=== PATIENT | female | born 1985 | race Caucasian/White ===

== ENCOUNTER 2016-11-13 19:04 | Emergency (ER) | payer SELFPAY ==
[~2016-11-13] VITALS: Ht 154.9 cm; Wt 45.4 kg
[~2016-11-13 19:04] MED LIST: LEVO1TBD5 PO; LEVO25TA4 PO; PROP10TA PO; PROP50TA3 PO
[2016-11-13 20:06] VITALS: BP 97/52
[2016-11-13] MEDS ORDERED: HYDR25CA PO (20:08)
--- NOTE | 2016-11-13 20:08 | PHYS DOC ---
Past Medical History Past Medical History: Hyperthyroid Additional Past Medical Histor: SUBSTANCE ABUSE Past Surgical History: Tonsillectomy Alcohol Use: Occasionally Drug Use: Methamphetamine Social History Narrative: PT REPORTS DAILY METH USE, LAST TIME WAS MONDAY. Adult General Chief Complaint Chief Complaint: ALLERGIC REACTION HPI HPI 31-year-old female who is currently in a rehabilitation facility presents secondary to concern over an allergic reaction to Haldol. She was given a Haldol injection a couple days ago and today she felt a little bit like her jaw was locking up. Because of this she called EMS they gave her 50 of Benadryl in route and she now states she feels sleepy but back to normal. She's never had a reaction like this in the past. She's had no skin rash or any other issues. She' s had no difficulty breathing or swallowing. She has not noticed her lips or tongue swelling. [] Review of Systems Review of Systems Constitutional: Denies fever or chills [] Eyes: Denies change in visual acuity, redness, or eye pain [] HENT: Denies nasal congestion or sore throat [] Respiratory: Denies cough or shortness of breath [] Cardiovascular: No additional information not addressed in HPI [] GI: Denies abdominal pain, nausea, vomiting, bloody stools or diarrhea [] : Denies dysuria or hematuria [] Musculoskeletal: Denies back pain or joint pain [] Integument: Denies rash or skin lesions [] Neurologic: Denies headache, focal weakness or sensory changes [] Endocrine: Denies polyuria or polydipsia [] Allergies Allergies Allergies Coded Allergies Type Severity Reaction Last Updated Verified No Known Drug Allergies 06/23/14 No Physical Exam Physical Exam Constitutional: Well developed, well nourished, no acute distress, non-toxic appearance. [] HENT: Normocephalic, atraumatic, bilateral external ears normal, oropharynx moist, no oral exudates, nose normal. [] Eyes: PERRLA, EOMI, conjunctiva normal, no discharge. [] Neck: Normal range of motion, no tenderness, supple, no stridor. [] Cardiovascular:Heart rate regular rhythm, no murmur [] Lungs & Thorax: Bilateral breath sounds clear to auscultation [] Abdomen: Bowel sounds normal, soft, no tenderness, no masses, no pulsatile masses. [] Skin: Warm, dry, no erythema, no rash. [] Back: No tenderness, no CVA tenderness. [] Extremities: No tenderness, no cyanosis, no clubbing, ROM intact, no edema. [] Neurologic: Alert and oriented X 3, normal motor function, normal sensory function, no focal deficits noted. [] Psychologic: Affect normal, judgement normal, mood normal. [] Current Patient Data Vital Signs Vital Signs Date Time Temp Pulse Resp B/P Pulse Ox O2 Delivery O2 Flow Rate FiO2 11/13/16 19:17 97.9 84 18 117/65 99 Room Air 97.9 EKG EKG [] Radiology/Procedures Radiology/Procedures [] Course & Med Decision Making Course & Med Decision Making Pertinent Labs and Imaging studies reviewed. (See chart for details) [ED course: It sounds as if she may have had a dystonic reaction related to Haldol. Benadryl resolved her issue. She's been stable in our emergency department. I've encouraged her to take Benadryl 25 mg every 4-6 hours as needed for symptoms. He is stable for discharge] Dragon Disclaimer Dragon Disclaimer This electronic medical record was generated, in whole or in part, using a voice recognition dictation system. Departure Departure Impression: Primary Impression: Dystonic drug reaction Disposition: HOME, SELF-CARE Condition: IMPROVED Referrals: NO PCP (PCP) Patient Instructions: [place] Additional Instructions: Thank you for allowing us to participate in your care today. Followup with your primary care physician in 3 days if your symptoms do not improve. Return to the emergency department you have any new or concerning findings. This should be evaluated by the primary care physician and any necessary consulting services for continued management within a few days after discharge. Return to emergency room if you have any new or concerning symptoms including but not limited to fever, chills, nausea, vomiting, intractable pain, any new rashes, chest pain, shortness of air, uncontrolled bleeding, difficulty breathing, and/or vision loss. You may have been prescribed medication that can change in your level of thinking and ability to operate machinery. These medications include hydrocodone and Ativan. Also, Benadryl has been known to do this as well. Be sure to check with your pharmacist and ask if the medications you've prescribed can affect your level of consciousness. I recommend not operating heavy machinery or driving while on medication such as these. Scripts Hydroxyzine Pamoate (Vistaril)25 Mg [id number] Mg PO Q6HRS PRN allergic reaction #30 CAP Prov:ALFRED NARANJO DO 11/13/16 ALFRED NARANJO DO Nov 13, 2016 20:08
== END 2016-11-13 21:02 | disposition home or self-care (01) ==
LOC: ER 19:04
DX: G24.09 Other drug induced dystonia (principal); E05.90 Thyrotoxicosis, unspecified without thyrotoxic crisis or storm; F15.10 Other stimulant abuse, uncomplicated
CPT/HCPCS: 99284

== ENCOUNTER 2017-07-02 19:37 | Emergency (ER) | payer SELFPAY ==
[~2017-07-02] VITALS: Ht 152.4 cm; Wt 61.2 kg
[2017-07-02 19:37] VITALS: BP 129/81
[~2017-07-02 19:37] MED LIST changes: +HYDR25CA PO; +PROP50TA17 PO; -PROP50TA3 PO
[2017-07-02] MEDS ORDERED: CEPH500T PO (19:59)
--- NOTE | 2017-07-02 19:59 | PHYS DOC ---
Past Medical History Past Medical History: Hyperthyroid Additional Past Medical Histor: SUBSTANCE ABUSE Past Surgical History: Tonsillectomy Alcohol Use: Occasionally Drug Use: Methamphetamine Adult General Chief Complaint Chief Complaint: TONGUE SWELLING/INJURY [facility] HPI Patient is a 32 year old female presents the ED complaining of swelling to lip x 1 day. States she just had a lip piercing a day ago and woke up with swelling and redness around the lip. Describes the pain as sharp. Rates as 6/10. Denies fever, n/v, difficulty swallowing, headache, chest pain or shortness of breath. Review of Systems Review of Systems Constitutional: Denies fever or chills [] Eyes: Denies change in visual acuity, redness, or eye pain [] HENT: Denies nasal congestion or sore throat [] Respiratory: Denies cough or shortness of breath [] Cardiovascular: No additional information not addressed in HPI [] GI: Denies abdominal pain, nausea, vomiting, bloody stools or diarrhea [] : Denies dysuria or hematuria [] Musculoskeletal: Denies back pain or joint pain [] Integument: Denies rash or skin lesions [] Neurologic: Denies headache, focal weakness or sensory changes [] Endocrine: Denies polyuria or polydipsia [] All other systems were reviewed and found to be within normal limits, except as documented in this note. Allergies Allergies Allergies Coded Allergies Type Severity Reaction Last Updated Verified No Known Drug Allergies 06/23/14 No Physical Exam Physical Exam Constitutional: Well developed, well nourished, no acute distress, non-toxic appearance. [] HENT: Normocephalic, atraumatic, bilateral external ears normal, oropharynx moist, no oral exudates, nose normal. ERYTHEMA AND DRAINAGE SURROUNDING PIERCING TO LEFT LOWER LIP. [] Neck: Normal range of motion, no tenderness, supple, no stridor. [] Cardiovascular:Heart rate regular rhythm, no murmur [] Lungs & Thorax: Bilateral breath sounds clear to auscultation [] Skin: Warm, dry, no erythema, no rash. [] Neurologic: Alert and oriented X 3, normal motor function, normal sensory function, no focal deficits noted. [] Psychologic: Affect normal, judgement normal, mood normal. [] EKG EKG [] Radiology/Procedures Radiology/Procedures [] Course & Med Decision Making Course & Med Decision Making Pertinent Labs and Imaging studies reviewed. (See chart for details) []Tetanus up-to-date. Patient's lip ring removed. Discussed abstaining from piercing lip until it heals. Will prescribe Keflex. Discussed symptomatic treatment. Discussed follow-up for wound reevaluation in 3 days. Provided contact information/education. Discussed reasons to return to the ED. Patient understands agrees with plan. Dragon Disclaimer Dragon Disclaimer This electronic medical record was generated, in whole or in part, using a voice recognition dictation system. Departure Departure Impression: Primary Impression: Pierced lip infection Disposition: HOME, SELF-CARE Condition: STABLE Referrals: NO PCP (PCP) SARAY DYE MD Patient Instructions: Oral Piercing, Piercing Infection Scripts Cephalexin (CEPHALEXIN) 500 Mg Tablet 1 TAB PO TID, #30 TAB Prov: ADI AL 07/02/17 ADI AL Jul 02, 2017 19:59
== END 2017-07-02 20:12 | disposition home or self-care (01) ==
LOC: ER 19:37
DX: B99.8 Other infectious disease (principal); K13.0 Diseases of lips; E05.90 Thyrotoxicosis, unspecified without thyrotoxic crisis or storm
CPT/HCPCS: 99284

== ENCOUNTER 2017-10-04 16:53 | Emergency (ER) | payer SELFPAY ==
[2017-10-04 17:51] LABS: ADD MAN DIFF? NO
[2017-10-04 17:53] LABS: BASO # 0.1 x10^3/uL (0.0-0.2); BASO % 1 % (0-3); EOS # 0.2 x10^3/uL (0.0-0.7); EOS % 4 % (0-3); HEMATOCRIT 35.7 % (36.0-47.0); HEMOGLOBIN 12.5 g/dL (12.0-15.5); LYMPH # 1.8 x10^3/uL (1.0-4.8); LYMPH % 31 % (24-48); MEAN CORPUSCULAR HEMOGLOBIN 32 pg (25-35); MEAN CORPUSCULAR HGB CONC 35 g/dL (31-37); MEAN CORPUSCULAR VOLUME 91 fL (79-100); MONO # 0.5 x10^3/uL (0.0-1.1); MONO % 9 % (0-9); NEUT # 3.3 x10^3uL (1.8-7.7); NEUT % 55 % (31-73); PLATELET COUNT 277 x10^3/uL (140-400); RED CELL DISTRIBUTION WIDTH 12.1 % (11.5-14.5); WHITE BLOOD COUNT 5.9 x10^3/uL (4.0-11.0)
[2017-10-04 18:03] LABS: ANION GAP 8 (6-14); BLOOD UREA NITROGEN 20 mg/dL (7-20); BUN/CREATININE RATIO 25 (6-20); CARBON DIOXIDE 26 mmol/L (21-32); CHLORIDE 104 mmol/L (98-107); CREATININE 0.8 mg/dL (0.6-1.0); GFR 84.2; GLUCOSE 119 mg/dL (70-99); POTASSIUM 3.2 mmol/L (3.5-5.1); SODIUM 138 mmol/L (136-145)
[2017-10-04 18:10] LABS: ALBUMIN/GLOBULIN RATIO 1.1 (1.0-1.7); ALK PHOS 66 U/L (46-116); ALT (SGPT) 19 U/L (14-59); AST (SGOT) 13 U/L (15-37); TOTAL BILIRUBIN 0.2 mg/dL (0.2-1.0); TOTAL PROTEIN 7.5 g/dL (6.4-8.2)
== END 2017-10-04 18:29 | disposition home or self-care (01) ==
LOC: ER 16:53
DX: L85.3 Xerosis cutis (principal); E05.90 Thyrotoxicosis, unspecified without thyrotoxic crisis or storm; F15.10 Other stimulant abuse, uncomplicated
CPT/HCPCS: 36415; 80053; 85025; 99284

== ENCOUNTER 2018-07-05 12:47 | Emergency (ER) | payer SELFPAY ==
[~2018-07-05] VITALS: Ht 152.4 cm; Wt 65.8 kg
[~2018-07-05 12:47] MED LIST changes: -PROPOFOL 40 ML IV ONE
[2018-07-05] MEDS ORDERED: ONDANSETRON PF 4 MG/2 ML VIAL. IV ONE (13:00)
[2018-07-05] MEDS ORDERED: GLUCAGON,HUMAN RECOMBINANT 1 MG/ML VIAL. IV ONE (13:00)
--- NOTE | 2018-07-05 13:05 | PHYS DOC ---
Past Medical History Past Medical History: Hyperthyroid Additional Past Medical Histor: SUBSTANCE ABUSE Past Surgical History: Tonsillectomy Alcohol Use: Occasionally Drug Use: Methamphetamine Adult General HPI HPI Patient is a 33 year old f presenting with food impaction. She was eating chicken while at work it get stuck in her esophagus she has had no relief. Review of Systems Review of Systems Constitutional: Denies fever or chills [] Eyes: Denies change in visual acuity, redness, or eye pain [] Respiratory: Denies cough or shortness of breath [] Cardiovascular: No additional information not addressed in HPI [] : Denies dysuria or hematuria [] Musculoskeletal: Denies back pain or joint pain [] All other systems were reviewed and found to be within normal limits, except as documented in this note. Current Medications Current Medications Current Medications Medications (Trade) Dose Ordered Sig/Blaze Start Time Stop Time Status Last Admin Dose Admin Glucagon (Glucagen) 1 mg 1X ONCE 07/05/18 13:00 07/05/18 13:01 DC 07/05/18 13:11 1 MG Lorazepam (Ativan) 1 mg 1X ONCE 07/05/18 13:00 07/05/18 13:01 DC 07/05/18 13:09 1 MG Ondansetron HCl (Zofran) 4 mg 1X ONCE 07/05/18 13:00 07/05/18 13:01 DC 07/05/18 13:10 4 MG Sodium Chloride 1,000 ml @ 1,000 mls/hr 1X ONCE 07/05/18 14:15 07/05/18 15:14 DC 07/05/18 14:23 1,000 MLS/HR Allergies Allergies Allergies Coded Allergies Type Severity Reaction Last Updated Verified No Known Drug Allergies 07/05/18 No Physical Exam Physical Exam Constitutional: Well developed, well nourished, no acute distress, non-toxic appearance. [] HENT: Normocephalic, atraumatic, bilateral external ears normal, oropharynx moist, no oral exudates, nose normal. [] Eyes: PERRLA, EOMI, conjunctiva normal, no discharge abd: soft nontender nondistended. back: No tenderness, no CVA tenderness. [] Extremities: No tenderness, no cyanosis, no clubbing, ROM intact, no edema. [] Neurologic: Alert and oriented X 3, normal motor function, normal sensory function, no focal deficits noted. [] Psychologic: Affect normal, judgement normal, mood normal. [] Current Patient Data Vital Signs Vital Signs Date Time Temp Pulse Resp B/P (MAP) Pulse Ox O2 Delivery O2 Flow Rate FiO2 07/05/18 14:46 86 18 118/71 (87) 98 Room Air 07/05/18 12:47 98.1 98.1 Lab Values Laboratory Tests Test 07/05/18 14:24 POC Urine HCG, Qualitative Hcg negative (Negative) EKG EKG [] Radiology/Procedures Radiology/Procedures [] Course & Med Decision Making Course & Med Decision Making Pertinent Labs and Imaging studies reviewed. (See chart for details) no relief with usual er tx. d/w tabulating machine mechanic from gi will take to endo suite directly from er [] Dragon Disclaimer Dragon Disclaimer This electronic medical record was generated, in whole or in part, using a voice recognition dictation system. Departure Departure Impression: Primary Impression: Esophageal foreign body Disposition: HOME, SELF-CARE Condition: STABLE Referrals: NO PCP (PCP) RADHA SAAVEDRA MD Jul 05, 2018 13:05
[2018-07-05] MEDS ORDERED: IV NORMAL SALINE 1000ML BAG 1,000 ML IV ONE (14:15)
[2018-07-05 14:46] VITALS: BP 118/71
--- NOTE | 2018-07-05 15:14 | PDOC2 ---
GI CONSULT Reason For Consult: Food bolus HPI: HPI: 33 y/o female seen in ER after d/w ER physician, Dr. Clayton. An employee at [employer], she took a bite of a chicken strip around 12:00 p.m. today. Because it was very hot, she was unable to chew well and it has been caught in her throat. No relief w/ glucagon and Ativan. She is unable to maintain her own secretions. Interestingly, she has a h/o daily dysphagia for years, mostly felt with solids. She has to have water on hand to wash the food down, especially as she eats more throughout the day. She has never had food get stuck like this before though. Has heartburn that is untreated. No odynophagia. No n/v, abd pain, constipation, diarrhea, bleeding, change in appetite, or weight loss. No previous EGD or colonoscopy. No GB, liver, or pancreas history. Takes no medications. 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) ROS: GEN: Denies fevers, chills, sweats HEENT: Denies blurred vision, sore throat CV: Denies chest pain RESP: Denies shortness of air, cough GI: Per HPI : Denies hematuria, dysuria ENDO: Denies weight changes NEURO: Denies confusion, dizziness MSK: Denies weakness, joint pain/swelling SKIN: Denies jaundice, pruritus Vitals: Vitals: Vital Signs Date Time Temp Pulse Resp B/P (MAP) Pulse Ox O2 Delivery O2 Flow Rate FiO2 07/05/18 12:47 98.1 89 18 117/76 (90) 98 Room Air 98.1 Labs: Labs: Laboratory Tests Test 07/05/18 14:24 Bedside Urine HCG, Qualitative Hcg negative (Negative) Allergies: Coded Allergies: No Known Drug Allergies (Unverified , 06/23/14) Medications: Current Medications Medications (Trade) Dose Ordered Sig/Blaze Route PRN Reason Start Time Stop Time Status Last Admin Dose Admin Glucagon (Glucagen) 1 mg 1X ONCE IV 07/05/18 13:00 07/05/18 13:01 DC 07/05/18 13:11 Lorazepam (Ativan) 1 mg 1X ONCE IV 07/05/18 13:00 07/05/18 13:01 DC 07/05/18 13:09 Ondansetron HCl (Zofran) 4 mg 1X ONCE IV 07/05/18 13:00 07/05/18 13:01 DC 07/05/18 13:10 Sodium Chloride 1,000 ml @ 1,000 mls/hr 1X ONCE IV 07/05/18 14:15 07/05/18 15:14 07/05/18 14:23 Imaging: Imaging: - PE: GEN: spitting saliva into a cup HEENT: Atraumatic, PERRL LUNGS: CTAB HEART: RRR, ABD: NABS, S/ND/NT EXTREMITY: No edema SKIN: No rashes, no jaundice NEURO/PSYCH: A & O 3 A/P: A/P: Food bolus - chicken, since 12:00 p.m. today Chronic dysphagia - daily w/ solids Heartburn CRC screen - average risk H/o Graves s/p radioactive iodine H/o substance abuse (meth) - sober x 2 years -- Plan for EGD/disimpaction w/ Dr. Lockhart this afternoon. MARCY LOVETT Jul 05, 2018 15:14
== END 2018-07-05 15:15 | disposition home or self-care (01) ==
LOC: ER 12:47
DX: T18.128A Food in esophagus causing other injury, initial encounter (principal); E03.9 Hypothyroidism, unspecified; Z90.89 Acquired absence of other organs; X58.XXXA Exposure to other specified factors, initial encounter; Y93.89 Activity, other specified; Y92.89 Other specified places as the place of occurrence of the external cause; Y99.0 Civilian activity done for income or pay
CPT/HCPCS: 81025; 96374; 96375; 99283; J1610; J2060; J2405; J7030

== ENCOUNTER → 2018-07-05 | Day surgery (SDC) | payer SELFPAY ==
[~2018-07-05] MED LIST changes: +CEPH500T PO; +PROPOFOL 40 ML IV ONE
[2018-07-05 17:18] VITALS: BP 117/54
--- NOTE | 2018-07-09 18:07 | PATHOLOGY ---
[facility] Accession Number: [id number] . 01 Material submitted: . PART A: GASTRIC ANTRUM BX PART B: GASTRIC CARDIA BX PART C: DISTAL ESOPHAGUS BX PART D: PROXIMAL ESOPHAGUS BX . 01 Clinical history: . Food bolus Rule out H. pylori . 02 Diagnosis: A. Gastric biopsies, antrum: - Gastric body mucosa showing congestion and mild chronic inflammation. . B. Gastric biopsies, gastric cardia: - Esophagogastric mucosa showing chronic inflammation with eosinophils. . C. Esophageal biopsies, distal esophagus: - Esophagitis with eosinophils. See comment. . D. Esophageal biopsies, proximal esophagus: - Segments of mildly hyperplastic squamous esophageal mucosa identified. [facility]/07/09/2018 . 02 Comment: Sections of the gastric antral biopsy reveal segments of gastric body mucosa showing congestion and mild superficial chronic inflammation with a lymphoid aggregate present within the base of the mucosa. An immunoperoxidase stain for Helicobacter is negative for Helicobacter organisms. Sections of the gastric cardia biopsy reveal esophagogastric mucosa showing mild to moderate chronic inflammation with focally admixed eosinophils. An immunoperoxidase for Helicobacter is negative for Helicobacter organisms. Sections of the distal esophageal biopsy reveal segments of hyperplastic squamous esophageal mucosa showing increased intraepithelial eosinophils. The differential diagnosis of esophagitis with eosinophils includes reflux esophagitis, "pill esophagitis", and eosinophilic esophagitis. Focally, there are approximately 20 intraepithelial eosinophils per high-power field suggestive of eosinophilic esophagitis. There is no evidence of Xie's change, dysplasia, or malignancy. Sections of the proximal esophageal biopsy reveal segments of mildly hyperplastic squamous esophageal mucosa. Focally, there are a few intraepithelial eosinophils. There is no evidence of Xie's change, dysplasia, or malignancy. ([facility] 07/09/2018) . Special stain performed: Immunoperoxidase for Helicobacter on A1 and B1. . 02 Electronically signed: . Jeramie Rosen MD, Pathologist NPI- [id number] . 01 Gross description: . A. The specimen is received in formalin, labeled "Leonel, Pippa, gastric antrum BX" and consists of 4 fragments of montano tissue measuring between 0.2 x 0.2 x 0.1 cm and 0.5 x 0.2 x 0.1 cm. They are entirely submitted in A1. . B. The specimen is received in formalin, labeled "Leonel, Pippa, gastric cardia BX" and consists of 2 fragments of montano tissue measuring 0.3 x 0.1 x 0.1 cm and 0.4 x 0.3 x 0.2 cm. They are entirely submitted in B1. . C. The specimen is received in formalin, labeled "Leonel, Pippa, distal esophagus BX" and consists of 3 fragments of translucent montano tissue measuring between 0.1 x 0.1 cm and 0.3 x 0.2 x 0.1 cm. They are entirely submitted in C1. . D. The specimen is received in formalin, labeled "Leonel, Pippa, proximal esophagus BX" and consists of 3 translucent fragments of funes-montano tissue measuring between 0.2 x 0.2 cm and 0.3 x 0.2 x 0.1 cm. They are entirely submitted in D1. ([facility]Y; 07/06/2018) SYU/SYU . 02 Pathologist provided ICD-10: K29.50, K31.89, K20.8 . 02 CPT . 056270, 036128, 633234, 822882, [id number] Specimen Comment: A courtesy copy of this report has been sent to Specimen Comment: [phone]. Specimen Comment: Report sent to Specimen Comment: A duplicate report has been generated due to demographic updates. Performed at: 01 [facility] [address], [place], [place] [id number] MD Bubba Garza MD Phone: [phone] Performed at: 02 [facility] [address] [place], [place] [id number] MD Jeramie Rosen MD Phone: [phone]
== END | disposition home or self-care (01) ==
LOC: SURG 15:46
PROVIDERS: ATTEND Internal Medicine
DX: K25.9 Gastric ulcer, unspecified as acute or chronic, without hemorrhage or perforation (principal); K44.9 Diaphragmatic hernia without obstruction or gangrene; K31.89 Other diseases of stomach and duodenum; K22.8 Other specified diseases of esophagus; K29.50 Unspecified chronic gastritis without bleeding; K21.0 Gastro-esophageal reflux disease with esophagitis
CPT/HCPCS: 43239; 88305; 88342; J2704

== ENCOUNTER 2018-08-20 16:15 | Emergency (ER) | payer SELFPAY ==
[~2018-08-20] VITALS: Ht 152.4 cm; Wt 68.0 kg
[2018-08-20 16:17] VITALS: BP 144/79
[2018-08-20 16:52] LABS: BILIRUBIN,URINE NEGATIVE (NEG); CLARITY,URINE CLEAR; COLOR,URINE YELLOW; NITRITE,URINE NEGATIVE (NEG); PH,URINE 5.5; PROTEIN,URINE NEGATIVE (NEG-TRACE); UROBILINOGEN,URINE 0.2 mg/dL (0.2 mg/dL)
[2018-08-20] MEDS ORDERED: METR-84 PO (16:59)
[2018-08-20] MEDS: AZITHROMYCIN 250 MG TABLET. PO ONE (17:01)
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
[2018-08-20] MEDS: cefTRIAXone IM 250 MG VIAL IM ONE (17:02)
[2018-08-20 17:14] LABS: BACTERIA,URINE 0 /HPF (0-FEW); RBC,URINE 0 /HPF (0-2); SQUAMOUS EPITHELIAL CELL,UR OCC /LPF; WBC,URINE OCC /HPF (0-4)
[2018-08-21 13:28] LABS: GC PROBE Negative (Negative)
== END 2018-08-20 17:15 | disposition home or self-care (01) ==
LOC: ER 16:15
DX: A64 Unspecified sexually transmitted disease (principal); N76.0 Acute vaginitis; B96.89 Other specified bacterial agents as the cause of diseases classified elsewhere; E05.90 Thyrotoxicosis, unspecified without thyrotoxic crisis or storm; Z90.89 Acquired absence of other organs
CPT/HCPCS: 81001; 81025; 87491; 87591; 96372; 99283; J0696; Q0111; Q0144

== ENCOUNTER 2019-04-12 19:31 | Emergency (ER) | payer SELFPAY ==
[~2019-04-12] VITALS: Ht 152.4 cm; Wt 63.5 kg
[~2019-04-12 19:31] MED LIST changes: +METR-34 PO
[2019-04-12 20:00] VITALS: BP 129/75
--- NOTE | 2019-04-12 20:55 | PHYS DOC ---
Past Medical History Past Medical History: Hyperthyroid, Other Additional Past Medical Histor: SUBSTANCE ABUSE,GRAVES DISEASE (TITI TOMLIN APRN) Past Surgical History: Tonsillectomy, Other Additional Past Surgical Histo: ADENOIDECTOMY (TITI TOMLIN APRN) Alcohol Use: Rarely Drug Use: None, Methamphetamine (TITI TOMLIN APRN) Adult General Chief Complaint Chief Complaint: ITCHING HPI HPI Patient is a 33 year old female who presents to the emergency department with complaints of itching all over for the last 2 years. Patient states she is taking 15-20 Benadryl a day. She states that all of the sudden an area of her body will itch and she will scratch it. She denies any shortness breath, wheezing, or hives. Patient states that she uses fragrance free body wash items and laundry detergents. She denies any pain at this time. She reports frequent dry skin that she applies lotion to frequently. (TITI TOMLIN APRN) Review of Systems Review of Systems Constitutional: Denies fever or chills [] Eyes: Denies change in visual acuity, redness, or eye pain [] HENT: Denies nasal congestion or sore throat [] Respiratory: Denies cough or shortness of breath [] Cardiovascular: No additional information not addressed in HPI [] GI: Denies abdominal pain, nausea, or vomiting Musculoskeletal: Denies back pain or joint pain [] Integument: see HPI Neurologic: Denies headache, focal weakness or sensory changes [] Endocrine: reports hx of Grave's disease has been off medications for several years Complete systems were reviewed and found to be within normal limits, except as documented in this note. (TITI TOMLIN APRN) Allergies Allergies Allergies Coded Allergies Type Severity Reaction Last Updated Verified No Known Drug Allergies 07/05/18 No (SARAY BECK DO) Physical Exam Physical Exam Constitutional: Well developed, well nourished, no acute distress, non-toxic appearance. [] HENT: Normocephalic, atraumatic, bilateral external ears normal, oropharynx mo ist, no oral exudates, nose normal. [] Eyes: PERRLA, EOMI, conjunctiva normal, no discharge. [] Neck: Normal range of motion, no stridor. [] Cardiovascular:Heart rate regular rhythm Lungs & Thorax: Respirations even and unlabored, no retractions, no respiratory distress Skin: Warm, dry, no erythema, no rash, no hives, patches of dry skin noted without erythema[] Back: No tenderness Extremities: No tenderness, no cyanosis, no clubbing, ROM intact, no edema. [] Neurologic: Alert and oriented X 3, no focal deficits noted. [] Psychologic: Affect normal, judgement normal, mood normal. [] (TITI TOMLIN APRN) Current Patient Data Vital Signs Vital Signs Date Time Temp Pulse Resp B/P (MAP) Pulse Ox O2 Delivery O2 Flow Rate FiO2 04/12/19 20:00 97.9 82 16 129/75 (93) 99 Room Air 97.9 (SARAY BECK DO) EKG EKG [] (TITI TOMLIN APRN) Radiology/Procedures Radiology/Procedures [] (TITI TOMLIN APRN) Course & Med Decision Making Course & Med Decision Making Pertinent Labs and Imaging studies reviewed. (See chart for details) [] (TITI TOMLIN APRN) Dragon Disclaimer Dragon Disclaimer This electronic medical record was generated, in whole or in part, using a voice recognition dictation system. (TITI TOMLIN APRN) Departure Departure Impression: Primary Impression: Itching Disposition: 01 HOME, SELF-CARE Condition: STABLE Referrals: NO PCP (PCP) Patient Instructions: Itching-Brief Additional Instructions: Recommend you try a daily antihistamine such as zyrtec or claritin. Stop taking over the recommended daily amount of benadryl. 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 Return to the ER if symptoms worsen. Attending Signature Attending Signature I have reviewed the PA/LEAD MECHANICAL ENGINEER's note and plan of care. I was available for consultation as needed during the patient's visit in the emergency department. I agree with the clinical impression, plan, and disposition. (SARAY BECK DO) TITI TOMLIN APRN Apr 12, 2019 20:55 SARAY BECK DO Apr 12, 2019 22:07
== END 2019-04-12 21:03 | disposition home or self-care (01) ==
LOC: ER 19:31
DX: L29.9 Pruritus, unspecified (principal); E05.90 Thyrotoxicosis, unspecified without thyrotoxic crisis or storm
CPT/HCPCS: 99281

== ENCOUNTER 2021-04-23 18:08 | Emergency (ER) | payer OTHER ==
[~2021-04-23] VITALS: Ht 152.4 cm; Wt 72.7 kg
[2021-04-23 20:44] LABS: BILIRUBIN,URINE NEGATIVE (NEG); CLARITY,URINE CLEAR; COLOR,URINE YELLOW; NITRITE,URINE NEGATIVE (NEG); PH,URINE 5.5 (<5.0-8.0); PROTEIN,URINE NEGATIVE (NEG-TRACE); UROBILINOGEN,URINE 0.2 mg/dL (0.2 mg/dL)
[2021-04-23 20:52] LABS: BACTERIA,URINE FEW /HPF (0-FEW)
[2021-04-23 20:54] LABS: RBC,URINE 0 /HPF (0-2)
[2021-04-23 21:25] LABS: BASO # 0.1 x10^3/uL (0.0-0.2); BASO % 1 % (0-3); EOS # 0.3 x10^3/uL (0.0-0.7); EOS % 4 % (0-3); HEMATOCRIT 39.2 % (36.0-47.0); HEMOGLOBIN 13.6 g/dL (12.0-15.5); LYMPH # 1.9 x10^3/uL (1.0-4.8); LYMPH % 25 % (24-48); MEAN CORPUSCULAR HEMOGLOBIN 31 pg (25-35); MEAN CORPUSCULAR HGB CONC 35 g/dL (31-37); MEAN CORPUSCULAR VOLUME 90 fL (79-100); MONO # 0.7 x10^3/uL (0.0-1.1); MONO % 9 % (0-9); NEUT # 4.4 x10^3/uL (1.8-7.7); NEUT % 60 % (31-73); PLATELET COUNT 287 x10^3/uL (140-400); RED BLOOD COUNT 4.35 x10^6/uL (3.50-5.40); WHITE BLOOD COUNT 7.4 x10^3/uL (4.0-11.0)
[2021-04-23 21:31] LABS: CREATININE 0.8 mg/dL (0.6-1.0); GFR 82.6; POTASSIUM 3.7 mmol/L (3.5-5.1)
--- NOTE | 2021-04-23 21:36 | RAD ---
Examination: Obstetric ultrasound less than 14 weeks HISTORY: History of abdominal pain COMPARISON: None available. FINDINGS: The uterus measures 7.8 x 4.0 x 4.1 cm. The endometrium measures 1.7 mm in thickness. The right ovary measures 3.9 x 2.9 x 1.9 cm. There is a 1.4 cm heterogeneous echogenicity identified in the right ov sb. The left ovary measures 2.9 x 2.8 x 1.8 cm. Blood flow identified in the right and left ovaries. Intrauterine gestational sac is not identified. IMPRESSION: 1. Intrauterine gestational sac is not identified. Differential includes very early ,or sammy led first trimester , or ectopic . An ectopic gestational sac is not identified. Co rrelate with the serial quantitative beta-hCG levels and follow-up ultrasound. 2. Heterogeneous 1.5 cm echogenicity identified in the right ovary could be a complex cyst or corpus luteal cyst. Electronically signed by: Mario Chu MD (04/23/2021 9:33 PM) [id number]
[2021-04-23 21:37] LABS: ALBUMIN/GLOBULIN RATIO 1.2 (1.0-1.7); MAGNESIUM 2.1 mg/dL (1.8-2.4); TOTAL BILIRUBIN 0.2 mg/dL (0.2-1.0); TOTAL PROTEIN 7.4 g/dL (6.4-8.2)
--- NOTE | 2021-04-23 21:53 | PHYS DOC ---
Past Medical History Past Medical History: Hyperthyroid, Other Additional Past Medical Histor: SUBSTANCE ABUSE,GRAVES DISEASE, CHRONIC HIVES (MELISSA,GAY M AIR ANALYSIS TECHNICIAN) Past Surgical History: Tonsillectomy, Other Additional Past Surgical Histo: ADENOIDECTOMY (GAY TORRES M AIR ANALYSIS TECHNICIAN) Smoking Status: Former Smoker Alcohol Use: Occasionally Drug Use: None, Methamphetamine (MELISSA,GAY M AIR ANALYSIS TECHNICIAN) General Adult EDM: Chief Complaint: ABDOMINAL PAIN IN HPI: HPI: Patient is a 35 year old female who presents with left lower slight cramping and a 3 out of 10 with slight dizziness that happened once. She denies any concern for STDs, vaginal discharge, vaginal bleeding, nausea, vomiting, diarrhea, fever, urinary symptoms. Patient's last menstrual period was March 27. She does have a positive test. Patient has a history of substance abuse, Graves' disease, tonsillectomy and appendectomy. (GAY TORRES M AIR ANALYSIS TECHNICIAN) Review of Systems: Review of Systems: Constitutional: Denies fever or chills. [] Eyes: Denies change in visual acuity. [] HENT: Denies nasal congestion or sore throat. [] Respiratory: Denies cough or shortness of breath. [] Cardiovascular: Denies chest pain or edema. [] GI: + abdominal pain, denies nausea, vomiting, bloody stools or diarrhea. [] : Denies dysuria. [] Musculoskeletal: Denies back pain or joint pain. [] Integument: Denies rash. [] Neurologic: Denies headache, focal weakness or sensory changes. [] Endocrine: Denies polyuria or polydipsia. [] Lymphatic: Denies swollen glands. [] Psychiatric: Denies depression or anxiety. [] (MELISSA,GAY M AIR ANALYSIS TECHNICIAN) Heart Score: C/O Chest Pain: No (MELISSA,GAY M AIR ANALYSIS TECHNICIAN) Allergies: Allergies: Allergies Coded Allergies Type Severity Reaction Last Updated Verified No Known Drug Allergies 07/05/18 No (GAY TORRES M AIR ANALYSIS TECHNICIAN) Physical Exam: PE: Constitutional: Well developed, well nourished, no acute distress, non-toxic appearance. [] HENT: Normocephalic, atraumatic, bilateral external ears normal, oropharynx moist, no oral exudates, nose normal. [] Eyes: PERRLA, EOMI, conjunctiva normal, no discharge. [] Neck: Normal range of motion, no tenderness, supple, no stridor. [] Cardiovascular:Heart rate regular rhythm, no murmur [] Lungs & Thorax: Bilateral breath sounds clear to auscultation [] Abdomen: Bowel sounds normal, soft, no tenderness, no masses, no pulsatile masses. [] Skin: Warm, dry, no erythema, no rash. [] Back: No tenderness, no CVA tenderness. [] Extremities: No tenderness, no cyanosis, no clubbing, ROM intact, no edema. [] Neurologic: Alert and oriented X 3, normal motor function, normal sensory function, no focal deficits noted. [] Psychologic: Affect normal, judgement normal, mood normal. [] Normal physical exam (GAY TORRES APRN) Current Patient Data: Labs: Laboratory Tests Test 04/23/21 19:24 04/23/21 19:29 04/23/21 21:12 Urine Collection Type Void Urine Color Yellow Urine Clarity Clear Urine pH 5.5 (<5.0-8.0) Urine Specific [place] >=1.030 (1.000-1.030) Urine Protein Negative mg/dL (NEG-TRACE) Urine Glucose (UA) Negative mg/dL (NEG) Urine Ketones (Stick) Negative mg/dL (NEG) Urine Blood Negative (NEG) Urine Nitrite Negative (NEG) Urine Bilirubin Negative (NEG) Urine Urobilinogen Dipstick 0.2 mg/dL (0.2 mg/dL) Urine Leukocyte Esterase Negative (NEG) Urine RBC 0 /HPF (0-2) Urine WBC 1-4 /HPF (0-4) Urine Squamous Epithelial Cells Few /LPF Urine Bacteria Few /HPF (0-FEW) Urine Mucus Mod /LPF POC Urine HCG, Qualitative Hcg positive (Negative) White Blood Count 7.4 x10^3/uL (4.0-11.0) Red Blood Count 4.35 x10^6/uL (3.50-5.40) Hemoglobin 13.6 g/dL (12.0-15.5) Hematocrit 39.2 % (36.0-47.0) Mean Corpuscular Volume 90 fL (79-100) Mean Corpuscular Hemoglobin 31 pg (25-35) Mean Corpuscular Hemoglobin Concent 35 g/dL (31-37) Red Cell Distribution Width 13.0 % (11.5-14.5) Platelet Count 287 x10^3/uL (140-400) Neutrophils (%) (Auto) 60 % (31-73) Lymphocytes (%) (Auto) 25 % (24-48) Monocytes (%) (Auto) 9 % (0-9) Eosinophils (%) (Auto) 4 % (0-3) H Basophils (%) (Auto) 1 % (0-3) Neutrophils # (Auto) 4.4 x10^3/uL (1.8-7.7) Lymphocytes # (Auto) 1.9 x10^3/uL (1.0-4.8) Monocytes # (Auto) 0.7 x10^3/uL (0.0-1.1) Eosinophils # (Auto) 0.3 x10^3/uL (0.0-0.7) Basophils # (Auto) 0.1 x10^3/uL (0.0-0.2) Sodium Level 138 mmol/L (136-145) Potassium Level 3.7 mmol/L (3.5-5.1) Chloride Level 103 mmol/L (98-107) Carbon Dioxide Level 27 mmol/L (21-32) Anion Gap 8 (6-14) Blood Urea Nitrogen 16 mg/dL (7-20) Creatinine 0.8 mg/dL (0.6-1.0) Estimated GFR (Cockcroft-Gault) 82.6 BUN/Creatinine Ratio 20 (6-20) Glucose Level 93 mg/dL (70-99) Calcium Level 9.0 mg/dL (8.5-10.1) Magnesium Level 2.1 mg/dL (1.8-2.4) Total Bilirubin 0.2 mg/dL (0.2-1.0) Aspartate Amino Transferase (AST) 8 U/L (15-37) L Alanine Aminotransferase (ALT) 20 U/L (14-59) Alkaline Phosphatase 63 U/L (46-116) Total Protein 7.4 g/dL (6.4-8.2) Albumin 4.0 g/dL (3.4-5.0) Albumin/Globulin Ratio 1.2 (1.0-1.7) Laboratory Tests 04/23/21 21:12 Laboratory Tests 04/23/21 21:12 Microbiology 04/23/21 Wet Prep - Final, Complete Vital Signs: Vital Signs Date Time Temp Pulse Resp B/P (MAP) Pulse Ox O2 Delivery O2 Flow Rate FiO2 04/23/21 19:15 98.4 70 119/73 (88) 93 Room Air 98.4 (GAY TORRES APRN) EKG: EKG: [] (GAY TORRES APRN) Radiology/Procedures: Radiology/Procedures: [] Impression: [facility] [address] [place] [address] IMAGING REPORT Signed PATIENT: CARRINGTON HUBER ACCOUNT: [id number] : 1985 LOCATION: ER AGE: 35 SEX: F EXAM STATUS: REG ER ORD. PHYSICIAN: GAY TORRES APRN REASON: ABDOMINAL PAIN IN PROCEDURE: OB < 14 WKS Examination: Obstetric ultrasound less than 14 weeks HISTORY: History of abdominal pain COMPARISON: None available. FINDINGS: The uterus measures 7.8 x 4.0 x 4.1 cm. The endometrium measures 1.7 mm in thickness. The right ovary measures 3.9 x 2.9 x 1.9 cm. There is a 1.4 cm het erogeneous echogenicity identified in the right ovary. The left ovary measures 2.9 x 2.8 x 1.8 cm. Blood flow identified in the right and left ovaries. Intrauterine gestational sac is not identified. IMPRESSION: 1. Intrauterine gestational sac is not identified. Differential includes very early ,or failed first trimester , or ectopic . An ectopic gestational sac is not identified. Correlate with the serial quantitative beta-hCG levels and follow-up ultrasound. 2. Heterogeneous 1.5 cm echogenicity identified in the right ovary could be a complex cyst or corpus luteal cyst. Electronically signed by: Mario Chu MD (04/23/2021 9:33 PM) [id number] DICTATED and SIGNED BY: MARIO CHU MD DATE: 04/23/21 [id number] (GAY TORRES APRN) Course & Med Decision Making: Course & Med Decision Making Pertinent Labs and Imaging studies reviewed. (See chart for details) See HPI. Alert and oriented x4. Ambulatory steady gait. Skin pink warm and dry. Abdomen soft and nontender. Vital signs within normal limits. No CVA tenderness. Pelvic Exam: Make Up Arranger present Abdomen: Nontender External Genitalia: Normal Skin Speculum: Normal vaginal mucosa, normal cervical discharge Bimanual: No adnexal masses or tenderness, No CMT Ultrasound shows no acute findings. Patient follow-up with her METAL TEMPERER in 48 hours for a serial beta hCG. [] (GAY TORRES APRN) Course & Med Decision Making Care and Treatment plan independently provided by ENVEL[employer] PATTERNMAKER. I was available for consult. Patients chart reviewed. (KEIRA LARA DO) Dragon Disclaimer: Dragyarely Disclaimer: This electronic medical record was generated, in whole or in part, using a voice recognition dictation system. (GAY TORRES APRN) Departure Departure Impression: Primary Impression: Abdominal pain affecting Disposition: HOME / SELF CARE / HOMELESS Condition: STABLE Referrals: NO PCP (PCP) SARAY WALLER MD Patient Instructions: Abdominal Pain During Additional Instructions: Call your [facility] and let them know you were here because of abdominal pain. Let them know the year beta hCG was 130. You should get another hCG in 48 hours or an ultrasound. Drink plenty of fluids. Take Tylenol for any of your pain. GAY TORRES APRN Apr 23, 2021 21:53 KEIRA LARA DO Apr 26, 2021 18:22
[2021-04-23 22:51] VITALS: BP 128/83
[2021-04-26 23:08] LABS: GC PROBE Negative (Negative)
== END 2021-04-23 22:53 | disposition home or self-care (01) ==
LOC: ER 18:08
DX: O26.891 Other specified pregnancy related conditions, first trimester (principal); R10.32 Left lower quadrant pain; O99.281 Endocrine, nutritional and metabolic diseases complicating pregnancy, first trimester; E05.90 Thyrotoxicosis, unspecified without thyrotoxic crisis or storm; Z3A.01 Less than 8 weeks gestation of pregnancy
CPT/HCPCS: 36415; 76801; 80053; 81001; 81025; 83735; 84702; 85025; 86850; 86900; 86901; 87491; 87591; 99285; Q0111